=== PATIENT | female | born 1995 | race Caucasian/White ===

== ENCOUNTER 2022-03-06 12:48 | Emergency (ER) | payer SELFPAY ==
[~2022-03-06] VITALS: Ht 167.6 cm; Wt 106.0 kg
[2022-03-06 12:58] VITALS: BP 132/84
[2022-03-06 16:41] LABS: BASOPHILS % 0.4 % (0.0-2.0); EOSINOPHILS % 0.5 % (0.0-5.0); HEMATOCRIT. 47.7 % (36.0-48.0); HEMOGLOBIN. 16.6 g/dL (12.0-16.0); LYMPHOCYTES % 27.6 % (20.0-50.0); MEAN CORPUSCULAR HEMOGLOBIN 28.8 pg (28.0-32.0); MEAN CORPUSCULAR VOLUME 82.8 fL (81.0-99.0); MEAN PLATELET VOLUME 7.4 fl (7.4-10.4); NEUTROPHILS % 66.5 % (40.0-76.0); PLATELET 237 x1000/uL (130-400); RED BLOOD CELL COUNT 5.76 mill/uL (4.2-5.4); RED CELL DISTRIBUTION WIDTH 13.3 % (11.6-14.6)
[2022-03-06 16:58] LABS: PROTHROMBIN TIME 10.9 sec (9.6-11.0)
[2022-03-06 17:00] LABS: CLARITY URINE CLEAR (CLEAR); COLOR URINE YELLOW (YELLOW); KETONES URINE NEGATIVE (NEGATIVE); LEUKOCYTE ESTERASE URINE NEGATIVE (NEGATIVE); NITRITE URINE NEGATIVE (NEGATIVE); OCCULT BLOOD URINE NEGATIVE (NEGATIVE); PH URINE 6.5 (4.5-8.0); PROTEIN URINE NEGATIVE (NEGATIVE); SPECIFIC GRAVITY URINE 1.021 (1.005-1.030); UROBILINOGEN URINE 0.2 E.U./dL (0.2-1.0)
[2022-03-06] MEDS ORDERED: ACETAMINOPHEN 325MG TABLET PO ONE (17:30)
[2022-03-06 18:32] LABS: CHLORIDE 104 mEq/L (98-107)
== END 2022-03-06 20:51 | disposition home or self-care (01) ==
LOC: ER 13:00
DX: R10.31 Right lower quadrant pain (principal); R03.0 Elevated blood-pressure reading, without diagnosis of hypertension
CPT/HCPCS: 36415; 74176; 80053; 81003; 81025; 83605; 85025; 99284